=== PATIENT | male | born 1995 | race African-American/Black ===

== ENCOUNTER 2019-12-05 00:47 | Emergency (ER) | payer SELFPAY ==
[~2019-12-05] VITALS: Ht 182.9 cm; Wt 138.3 kg
[2019-12-05 00:52] VITALS: BP_SYST 122
--- NOTE | 2019-12-05 00:52 | NUR ---
Patient to ER bed 02 to gown for evaluation. Side rails up. Report given to JOE COLBERT
--- NOTE | 2019-12-05 00:57 | NUR ---
ER at bedside examining patient.
[2019-12-05] MEDS ORDERED: NACL 0.9% 1,000 ML IV ONE (01:00)
--- NOTE | 2019-12-05 01:00 | NUR ---
Pt arrived by [facility] ambulance. pt awake, confused, disoriented, calm. Per EMS report and family, patient took unknown amount of THC/CBD "Edibles" and became confused, lethargic. Pt denies any medical complaint at this time. Pt appears to have no respiratory distress, or pain of any kind at this time. No guarding, no grimacing. Pt resting in ED bed comfortably, tolerating IV fluids well.
[2019-12-05 01:58] LABS: BASOPHILS # (AUTO) 0.1 K/uL (0.0-0.2); BASOPHILS % (AUTO) 0.4 % (0.0-2.0); EOSINOPHILS % (AUTO) 0.2 % (0.0-4.0); HEMATOCRIT 35.2 % (36-54); HEMOGLOBIN 11.8 g/dL (14.0-18.0); LYMPHOCYTES # (AUTO) 1.7 K/uL (1.0-5.5); LYMPHOCYTES % (AUTO) 12.6 % (20.5-51.5); MEAN CORPUSCULAR HEMOGLOBIN 30 pg (27-31); MEAN CORPUSCULAR HGB CONC 34 % (32-36); MEAN CORPUSCULAR VOLUME 89 fL (79.0-98.0); MONOCYTES # (AUTO) 0.9 K/uL (0.0-1.0); MONOCYTES % (AUTO) 6.8 % (1.7-9.3); NEUTROPHILS # (AUTO) 10.7 K/uL (1.8-7.7); PLATELET COUNT (AUTO) 201 K/uL (130-430); RED BLOOD CELL COUNT(AUTO) 3.96 MIL/uL (4.2-6.2); RED CELL DISTRIBUTION WIDTH 12.8 % (9.0-15.0); WHITE BLOOD COUNT (AUTO) 13.4 K/uL (4.8-10.8)
--- NOTE | 2019-12-05 02:00 | NUR ---
Pt resting in ED bed comfortably. No distress. Supporting Airway without complication.
[2019-12-05 02:19] LABS: ANION GAP 7 (5-15); CALCIUM 8.3 mg/dL (8.4-11.0); CHLORIDE 106 mmol/L (98-107); CREATININE 1.18 mg/dL (0.55-1.30); GLUCOSE 105 mg/dL (70-99); POTASSIUM 3.9 mmol/L (3.5-5.1); SODIUM SERUM 138 mmol/L (136-145); UREA NITROGEN, BLOOD 13 mg/dL (8-21)
[2019-12-05 02:33] LABS: ALANINE AMINOTRANSFERASE 19 U/L (12-78); ALBUMIN 3.3 g/dL (3.4-4.8); ASPARTATE AMINOTRANSFERASE 18 U/L (10-37); GFR AFRICAN AMERICAN 99 mL/min (>90); TOTAL BILIRUBIN 0.2 mg/dL (0.0-1.0)
[2019-12-05 02:34] LABS: ACETAMINOPHEN < 1 ug/mL (1-30); ALCOHOL, BLOOD < 3 mg/dL (<10)
--- NOTE | 2019-12-05 02:55 | NUR ---
Pt resting in ED bed comfortably. No Acute distress.
--- NOTE | 2019-12-05 03:35 | NUR ---
Pt responding verbally. requested Urinal and able to use it independently.
--- NOTE | 2019-12-05 07:20 | NUR ---
Patient given written and verbal discharge instructions and verbalizes understanding. ER MD discussed with patient the results and treatment provided. Patient in stable condition. ID arm band removed. IV catheter removed intact and dressing applied, no active bleeding. No prescriptions given. Patient educated on pain management and to follow up with PMD. Pain Scale 0. Opportunity for questions provided and answered. Medication side effect fact sheet provided.
[2019-12-05 07:40] VITALS: BP_SYST 122
== END 2019-12-05 07:20 | disposition home or self-care (01) ==
LOC: SED 00:47
DX: T40.7X1A Poisoning by cannabis (derivatives), accidental (unintentional), initial encounter (principal); Y92.89 Other specified places as the place of occurrence of the external cause
CPT/HCPCS: 36415; 80053; 85025; 93005; 96360; 99284; G0480; G0481; G0482; J7030